=== PATIENT | female | born 1990 | race Caucasian/White ===

== ENCOUNTER 2016-09-15 18:17 | Emergency (ER) | payer BC ==
[~2016-09-15] VITALS: Ht 162.6 cm; Wt 66.8 kg
[2016-09-15 18:19] VITALS: BP 152/98
== END 2016-09-15 19:11 | disposition home or self-care (01) ==
LOC: ED 19:05
DX: K12.1 Other forms of stomatitis (principal)
CPT/HCPCS: 99281

== ENCOUNTER 2016-10-27 11:20 | Emergency (ER) | payer BC ==
[~2016-10-27] VITALS: Ht 162.6 cm; Wt 66.5 kg
[2016-10-27] MEDS ORDERED: SODIUM CHLORIDE 0.9% 1,000 ML IV ONE (11:56)
[2016-10-27] MEDS ORDERED: SODIUM CHLORIDE FLUSH 10ML SYR IVF ONE (12:00)
[2016-10-27] MEDS ORDERED: MAALOX/HYOSCYAMINE/LIDOCAINE 45 ML BOTTLE PO ONE (12:00)
[2016-10-27] MEDS ORDERED: FAMOTIDINE 20 MG/2 ML IVP ONE (12:00)
[2016-10-27] MEDS ORDERED: MAALOX/HYOSCYAMINE/LIDOCAINE 45 ML BOTTLE ONE (12:10)
[2016-10-27] MEDS ORDERED: FAMOTIDINE 20 MG/2 ML ONE (12:10)
[2016-10-27 12:30] LABS: ASPARTATE AMINO TRANSFERASE 10 U/L (15-37); BLOOD UREA NITROGEN 11 mg/dL (7-18)
[2016-10-27] MEDS ORDERED: ACETAMINOPHEN 500 MG TABLET PO ONE (12:30)
[2016-10-27] MEDS ORDERED: ACETAMINOPHEN 500 MG TABLET ONE (12:38)
[2016-10-27 13:17] VITALS: BP 134/80
== END 2016-10-27 13:20 | disposition home or self-care (01) ==
LOC: ED 13:06
DX: K29.00 Acute gastritis without bleeding (principal); N80.9 Endometriosis, unspecified
CPT/HCPCS: 36415; 80053; 83690; 84703; 85025; 96361; 96374; 99284; J7030; S0028

== ENCOUNTER 2017-12-01 10:05 | Emergency (ER) | payer BC, MEDICAID, OTHER ==
[~2017-12-01] VITALS: Ht 162.6 cm; Wt 68.6 kg
[~2017-12-01 10:05] MED LIST: ESOM20CA PO
[2017-12-01] MEDS ORDERED: ONDANSETRON ODT 4 MG ONE (10:35)
[2017-12-01 10:38] VITALS: BP 154/101
[2017-12-01 10:48] LABS: BASOPHILS # (AUTO) 0.07 x10^3/uL (0-0.1); BASOPHILS % (AUTO) 1 % (0-1); EOSINOPHILS # (AUTO) 0.05 x10^3/uL (0-0.4); EOSINOPHILS % (AUTO) 1 % (1-7); LYMPHOCYTES % (AUTO) 19 % (22-44); MD NO; MEAN CORPUSCULAR HEMOGLOBIN 33.7 pg (27.0-34.8); MEAN CORPUSCULAR HGB CONC 34.7 g/dL (32.4-35.8); MEAN CORPUSCULAR VOLUME 97.1 fL (80-100); MEAN PLATELET VOLUME 7.9 fL (7.4-10.4); MONOCYTES # (AUTO) 0.35 x10^3/uL (0.2-0.8); MONOCYTES % (AUTO) 7 % (2-9); NEUTROPHILS # (AUTO) 3.68 x10^3/uL (1.8-6.8); NEUTROPHILS % (AUTO) 72 % (42-75); PLATELET COUNT 267 x10^3/uL (130-400); RED BLOOD COUNT 4.33 x10^6/uL (3.82-5.3); RED CELL DISTRIBUTION WIDTH 12.3 % (9.6-15.2)
[2017-12-01 10:49] LABS: HCG UR SG 1.016 (1.003-1.030); MICROSCOPIC NOT IND
[2017-12-01 10:50] LABS: CULTURE INDICATED? NO
[2017-12-01 11:07] LABS: ALANINE AMINOTRANSFERASE 28 U/L (12-78); ALBUMIN 4.1 g/dL (3.4-5.0); ANION GAP 7 mmol/L (5-15); CALCIUM 8.5 mg/dL (8.5-10.1); CHLORIDE 108 mmol/L (98-107); CREATININE 0.81 mg/dL (0.55-1.02)
[2017-12-01 11:10] LABS: ALKALINE PHOSPHATASE 64 U/L (45-117); BILIRUBIN,TOTAL 0.6 mg/dL (0.2-1.0); TOTAL PROTEIN 7.2 g/dL (6.4-8.2)
[2017-12-01] MEDS ORDERED: KETOROLAC 30 MG/1 ML ONE (11:16)
[2017-12-01] MEDS ORDERED: KETOROLAC 30 MG/1 ML IM ONE (11:30)
[2017-12-01] MEDS ORDERED: ONDANSETRON ODT 4 MG PO ONE (11:30)
== END 2017-12-01 13:00 | disposition home or self-care (01) ==
LOC: ED 11:42
DX: R10.9 Unspecified abdominal pain (principal); R42 Dizziness and giddiness; R11.0 Nausea; R51 Headache
CPT/HCPCS: 36415; 74018; 76770; 80053; 81003; 81025; 83690; 85025; 93005; 96372; 99285; J1885; Q0162